=== PATIENT | male | born 1990 | race Hispanic/Latino ===

== ENCOUNTER 2018-08-07 11:07 | Emergency (ER) | payer OTHER ==
[2018-08-07 11:08] VITALS: BMI 33.0
[2018-08-07 11:49] VITALS: RESP 18; TEMP 98.6
--- NOTE | 2018-08-07 12:27 | ED PDOC ---
Arrival/HPI - General Historian: Patient - History of Present Illness Time/Duration: < week Symptom Onset: Sudden Symptom Course: Unchanged Quality: Other (itchiness) Severity Level: Mild <Luis Haines - Last Filed: 08/07/18 13:12> <Milan Gerber - Last Filed: 08/07/18 22:44> - General Chief Complaint: Bite Time Seen by Provider: 08/07/18 12:10 - History of Present Illness Narrative History of Present Illness (Text): 08/07/18 12:24 27 year old male, no significant past medical history, presents to the emergency department with a bug bite on the right forearm that happened 5 days ago. Patient states he was sitting in his car when he felt itchiness and noticed redness in the right forearm. He did not recently go hiking however [place] He has never had a rash like this before. States the rash did not improve and continued to get larger. He had night sweats last night for the first time as well as some muscle aches. Denies fever, nausea, vomiting, headache, dizziness, abdominal pain, chest pain, palpitations, shortness of breath, cough, changes in hearing or vision, or urinary symptoms. PMD: Dr. Bai (Luis Haines) Past Medical History - Provider Review Nursing Documentation Reviewed: Yes - Infectious Disease Hx of Infectious Diseases: None - Tetanus Immunization Tetanus Immunization: Up to Date - Past Medical History Past Medical History: No Previous - Cardiac Hx Cardiac Disorders: No - Renal Hx Renal Disorder: No - Psychiatric Hx Substance Use: No - Past Surgical History Past Surgical History: No Previous - Surgical History Other/Comment: ear lobes closed ernie - Anesthesia Hx Anesthesia: No - Suicidal Assessment Feels Threatened In Home Enviroment: No <Luis Haines - Last Filed: 08/07/18 13:12> Family/Social History - Physician Review Nursing Documentation Reviewed: Yes Family/Social History: No Known Family HX Smoking Status: Never Smoked Hx Alcohol Use: No Hx Substance Use: No Hx Substance Use Treatment: No <Luis Haines - Last Filed: 08/07/18 13:12> Allergies/Home Meds <Luis Haines - Last Filed: 08/07/18 13:12> <Milan Gerber - Last Filed: 08/07/18 22:44> Allergies/Adverse Reactions: Allergies seasonal Allergy (Uncoded 08/07/18 11:49) CONGESTION Review of Systems - Physician Review All systems were reviewed & negative as marked: Yes - Review of Systems Constitutional: Night Sweats. absent: Fevers Eyes: absent: Vision Changes ENT: absent: Hearing Changes Respiratory: absent: SOB, Cough Cardiovascular: absent: Chest Pain, Palpitations Gastrointestinal: absent: Abdominal Pain, Nausea, Vomiting Genitourinary Male: absent: Dysuria, Hematuria Musculoskeletal: absent: Arthralgias, Back Pain, Joint Swelling Skin: Rash, Skin Lesions Neurological: absent: Headache, Dizziness Endocrine: absent: Diaphoresis <Luis Haines - Last Filed: 08/07/18 13:12> Physical Exam Vital Signs Reviewed: Yes Temperature: Afebrile Blood Pressure: Normal Pulse: Regular Respiratory Rate: Normal Appearance: Positive for: Well-Appearing, Non-Toxic, Comfortable Pain Distress: None Mental Status: Positive for: Alert and Oriented X 3 - Systems Exam Head: Present: Atraumatic, Normocephalic Pupils: Present: PERRL Extroacular Muscles: Present: EOMI Conjunctiva: Present: Normal Mouth: Present: Moist Mucous Membranes Respiratory/Chest: Present: Clear to Auscultation, Good Air Exchange. No: Respiratory Distress, Accessory Muscle Use Cardiovascular: Present: Regular Rate and Rhythm, Normal S1, S2. No: Murmurs Abdomen: No: Tenderness, Distention, Peritoneal Signs Upper Extremity: Present: NORMAL PULSES, Other (bullseye rash on the right forearm ) Lower Extremity: Present: Normal Inspection, NORMAL PULSES. No: Edema Neurological: Present: GCS=15, CN II-XII Intact, Speech Normal Skin: Present: Rashes, Erythematous, Hot. No: Diaphoretic, Induration Psychiatric: Present: Alert, Oriented x 3, Normal Insight, Normal Concentration <ZakiLuis - Last Filed: 08/07/18 13:12> Vital Signs Temp Pulse Resp BP Pulse Ox 08/07/18 13:45 69 18 133/86 100 08/07/18 11:45 98.6 F 72 18 144/80 98 Medical Decision Making <Luis Haines - Last Filed: 08/07/18 13:12> - Lab Interpretations I have reviewed the lab results: Yes - EKG Interpretation Interpreted by ED Physician: Yes Type: 12 lead EKG <Milan Gerber - Last Filed: 08/07/18 22:44> ED Course and Treatment: 08/07/18 12:29 27M, presents to the ED with bug bite on right forearm. CBC CMP Lyme Titers EKG Doxycycline 100mg PO EKG-61bpm, NSR, no t-wave abnormalities Labs within normal limits. Patient will continue antibiotic treatment for the next 14 days as instructed. Please follow up with your primary medical doctor within 3-5 days. If symptoms worsen, please return to the emergency department. Patient verbalized understanding and agreement of the treatment plan. Case reviewed and discussed with attending provider. (Luis Haines) 08/07/18 12:54 Patient Seen With Resident: In agreement with resident note. Patient was seen and evaluated with resident, came up with plan and treatment together. IMPRESSION: 27 year old male who is complaining of a 5 day old bug bite to the right forearm with associated erythematous pruritus rash. (Milan Gerber) - Lab Interpretations Lab Results: 08/07/18 12:32 08/07/18 12:32 Lab Results 08/07/18 12:32: Sodium 142, Potassium 4.3, Chloride 105, Carbon Dioxide 26, Anion Gap 15, BUN 16, Creatinine 0.9, Est GFR ( Amer) > 60, Est GFR (Non- Af Amer) > 60, Random Glucose 93, Calcium 9.5, Total Bilirubin 0.6, AST 37, ALT 53, Alkaline Phosphatase 44, Total Protein 8.1, Albumin 4.5, Globulin 3.6, Albumin/Globulin Ratio 1.3 08/07/18 12:32: WBC 6.9 D, RBC 5.33, Hgb 16.4, Hct 46.1, MCV 86.5, MCH 30.8, MCHC 35.6, RDW 12.2, Plt Count 204, MPV 10.2, Gran % 56.8, Lymph % (Auto) 29.5, Tillman % (Auto) 11.9 H, Eos % (Auto) 1.2 L, Baso % (Auto) 0.6, Gran # 3.92, Lymph # (Auto) 2.0, Tillman # (Auto) 0.8 H, Eos # (Auto) 0.1, Baso # (Auto) 0.04 08/07/18 12:32: Lyme Disease IgG Ab (IFA) Negative, Lyme Disease IgM Ab Negative - Medication Orders Current Medication Orders: Discontinued Medications Doxycycline Hyclate (Doryx) 100 mg PO STAT STA PRN Reason: Protocol Stop: 08/07/18 12:24 Last Admin: 08/07/18 12:59 Dose: 100 mg - PA / BI LEAD / Resident Statement JOSUE has reviewed & agrees with the documentation as recorded. / has examined the patient and agrees with the treatment plan. <Milan Gerber - Last Filed: 08/07/18 22:44> Disposition/Present on Arrival - Present on Arrival Any Indicators Present on Arrival: No History of DVT/PE: No History of Uncontrolled Diabetes: No Urinary Catheter: No History of Decub. Ulcer: No History Surgical Site Infection Following: None - Disposition Have Diagnosis and Disposition been Completed?: Yes Disposition Time: 13:13 Patient Plan: Discharge <Luis Haines - Last Filed: 08/07/18 13:12> <Milan Gerber - Last Filed: 08/07/18 22:44> - Disposition Diagnosis: Lyme disease with erythema migrans lesion 5 cm or greater in diameter Disposition: HOME/ ROUTINE Condition: GOOD Discharge Instructions (ExitCare): Lyme Disease (DC) Additional Instructions: Patient will continue antibiotic treatment for the next 14 days as instructed. Please follow up with your primary medical doctor within 3-5 days. If symptoms worsen, please return to the emergency department. Prescriptions: Doxycycline Hyclate 100 mg PO BID 14 Days #28 capsule Referrals: Katy Marie MD [Primary Care Provider] - Follow up with primary Forms: [employer] (Guyanese), WORK NOTE
[2018-08-07 12:58] LABS: BASO # 0.04 K/mm3 (0.0-2.0); BASO % 0.6 % (0.0-3.0); EOS # 0.1 (0.0-0.7); EOS % 1.2 % (1.5-5.0); GRAN # 3.92 (1.4-6.5); GRAN % 56.8 % (50.0-68.0); HEMOGLOBIN 16.4 g/dL (14.0-18.0); LYMPH % 29.5 % (22.0-35.0); MEAN CELL VOLUME 86.5 fl (80.0-105.0); MEAN CORPUSCULAR HEMOGLOBIN 30.8 pg (25.0-35.0); MEAN CORPUSCULAR HGB CONC 35.6 g/dl (31.0-37.0); MEAN PLATELET VOLUME 10.2 fl (7.0-11.0); MONO # 0.8 (0.1-0.6); MONO % 11.9 % (1.0-6.0); RBC 5.33 10^6/uL (3.5-6.1); RED CELL DISTRIBUTION WIDTH 12.2 % (11.5-14.5); WHITE BLOOD COUNT 6.9 10^3/ul (4.5-11.0)
[2018-08-07 13:09] LABS: ALB/GLOB RATIO 1.3 (1.1-1.8); ALBUMIN 4.5 g/dL (3.0-4.8); ALT/SGPT 53 U/L (7-56); AST/SGOT 37 U/L (17-59); BLOOD UREA NITROGEN 16 mg/dL (7-21); CALCIUM 9.5 mg/dL (8.4-10.5); GFR NON-AFRICAN AMERICAN > 60
[2018-08-07 13:46] VITALS: BP 133/86; PULSE 69; O2SAT 100
[2018-08-07 17:26] LABS: LYME IGG NEGATIVE (NEGATIVE)
[2018-08-07 17:32] LABS: LYME IGM NEGATIVE (NEGATIVE)
--- NOTE | 2018-08-07 20:50 | CARD ---
APPROVED REPORT Date of service: 08/07/2018 EKG Measurement Heart [id number] <Conclusion> Sinus rhythm with marked sinus arrhythmia Otherwise normal ECG
== END 2018-08-07 13:44 | disposition home or self-care (01) ==
LOC: ED 11:07
DX: A69.20 Lyme disease, unspecified (principal)